=== PATIENT | female | born 1995 | race Hispanic/Latino ===

== ENCOUNTER 2018-01-15 02:40 | Inpatient (IN) | payer MEDICAID, OTHER ==
[2018-01-20 23:06] VITALS: BMI 37.8
[2018-01-20] MEDS: Lactated Ringer's 1,000 ML IV SCH (23:10)
[2018-01-20] MEDS ORDERED: Promethazine HCl 25 MG/ML VIAL IM PRN (23:12)
[2018-01-20] MEDS ORDERED: Ibuprofen 800 MG TAB PO PRN (23:12)
[2018-01-20] MEDS ORDERED: Zolpidem Tartrate 5 MG TAB PO PRN (23:12)
[2018-01-20] MEDS ORDERED: LR / Pitocin 40 units/1000 ml 1,000 ML IV PRN (23:12)
[2018-01-20] MEDS ORDERED: HYDROcodone/Acetaminophen 5/325 mg Tablet PO PRN ×2 (23:12)
[2018-01-20] MEDS ORDERED: Misoprostol 200 MCG TAB PR PRN (23:12)
[2018-01-20] MEDS ORDERED: Carboprost 250 MCG/ML AMP IM PRN (23:12)
[2018-01-20] MEDS ORDERED: Lidocaine 1% (PF) 30 ML VIAL SC PRN (23:12)
[2018-01-20] MEDS ORDERED: Ondansetron HCl/PF 4 MG/2 ML Vial IVP PRN (23:12)
[2018-01-20] MEDS ORDERED: Methylergonovine 0.2 MG/ML VIAL IM PRN (23:12)
[2018-01-20] MEDS ORDERED: Acetaminophen 500 MG TAB PO PRN (23:12)
[2018-01-20] MEDS ORDERED: Penicillin G Potassium 5 MILL.UNITS in Sodium Chloride 0.9% 100 ML IVPB SCH (23:15)
[2018-01-20 23:42] LABS: Hemoglobin 11.8 g/dL (12.0-16.0); Mean Corpuscular HGB CONC 32.7 g/dL (32.0-36.0); Mean Corpuscular Hemoglobin 27.3 pg (25.0-35.0); Mean Corpuscular Volume 83.5 fl (77.0-87.0); Mean Platelet Volume 11.2 fL (7.4-10.4); Platelet Count 198 thou/uL (130-400); RBC Distribution Width 12.9 % (11.5-14.5); Red Blood Cell (RBC) Count 4.33 mill/uL (4.00-5.20); White Blood Cell (WBC) Count 10.8 thou/uL (4.8-10.8)
[2018-01-20] MEDS: Misoprostol 100 MCG TAB VAG SCH (23:49)
--- NOTE | 2018-01-21 | PDOC.LDHP ---
Labor and Delivery H&P Chief complaint: scheduled induction HPI: Patient is a 22yo at 40.5w by LMP/14.6w sono presents for IOL for post dates. Patient denies LOF, VB, dysuria, vaginal d/c, and recent illness. Reports good FM. Current gestational age (weeks): 40 (5) Due date: 01/15/18 Dating criteria: last menstrual period, first trimester ultrasound Grav: 1 Para: 0 Current complications: other (Positive chlamydia with negative ROZ) Abnormal US findings: No Past Medical History: None Current medications: none Previous surgical history: none Social history: none - Physical Exam Vital signs reviewed and normal: yes General: NAD, resting Heart: RRR Lungs: nonlabored breathing Abdomen: gravid Extremeties: trace edema FHT: category 1 [place] contractions every: irregular - Vaginal Exam cm dilated: 0 Effacement: 0% Station: -2 - OB Labs Blood type: A RH: positive Antibody Screen: negative HIV: negative RPR: negative HEPSAg: negative 1 hour GCT: negative GBS: positive Urine drug screen: not done Rubella: immune - Assessment L&D Assessment: elective induction at term 22yo at 40.5 by LMP/14.6w gonzalezo presents for IOL. 1. IOL for post term dates - admit to L&D - cytotec placed 0000, monitor FHT, currently Cat 1 - LR at 125ml/hr - FT//-2, repeat cervical check in 3hrs 2. GBS positive - PCN prophylaxis 3. Adoption - patient reports plan to see the baby right after delivery - has filled out open adoption paperwork with [facility] - Plan Plan: admit to L&D, cervical ripening, labor augmentation if indicated <Baylee Max - Last Filed: 01/20/18 23:58> <Olga Belcher - Last Filed: 01/21/18 00:32> Allergies/Adverse Reactions: Allergies Allergy/AdvReac Type Severity Reaction Status Date / Time No Known Allergies Allergy Unverified 01/20/18 23:01 Attending Addendum - Attending Addendum Date/Time: 01/21/18 0028 I personally evaluated the patient and discussed the management with Dr. Max I agree with the History, Examination, Assessment and Plan documented above with any addition or exceptions noted below- 22 yo LAF @40.5 weeks admitted for induction. (+) FM. Denies any ctx, LOF, VB. Afebrile VSS SVE FT/ thick/-2/post; Category 1 FHTs; [place]- no ctx A/P: 1) IUP @40.5 weeks for postdates induction- cytotec placed for cervical ripening; recheck in 3-4 hours. 2) GBS(+) - start prophylaxis when pitocin started. <Olga Belcher - Last Filed: 01/21/18 00:32>
[2018-01-21 00:05] LABS: Syphilis Antibody Nonreactive (Nonreactive); Syphilis Antibody Index 0.05 S/CO (<1.00 Non-Reactive)
[2018-01-21 00:06] LABS: HBSAg Index 0.18 S/CO (0-0.99); Hep B Surf Ag Non-Reactive S/CO (NonReactive)
[2018-01-21] MEDS ORDERED: Penicillin G 2.5 MILL.units 2.5 MILL.UNITS in Premix Bag 1 BAG IVPB SCH (01:00)
[2018-01-21] MEDS: Misoprostol 100 MCG TAB VAG SCH ×4 (03:23→17:34)
--- NOTE | 2018-01-21 03:33 | PDOC.LDPN ---
Labor & Delivery Progress Note - Subjective Subjective: comfortable - Objective Vital signs reviewed and normal: yes General: NAD Uterine fundus: non tender SVE: FT/75%/-2 Dilation: FT Effacement: 75% Station: -2 FHT: category 1 [place] contractions every: irregular Procedures: cytotec placed - Assessment (1) Term Code(s): Z34.80 - ENCOUNTER FOR SUPRVSN OF NORMAL , UNSP TRIMESTER Current Visit: Yes Status: Acute Comment: 22 yo at 41w by LMP/14.6w sono here for IOL Cytotec x1, minimal change on SVE, cat 1 strip. Second cytotec placed. Continue to monitor and recheck in 3 hrs. (2) GBS (group B Streptococcus carrier), +RV culture, currently Code(s): O99.820 - STREPTOCOCCUS B CARRIER STATE COMPLICATING Current Visit: Yes Status: Acute Comment: Prophylactic PCN, loading dose given. Will give q4h once pitocin is started Plan: continue plan of care
[2018-01-21] MEDS ORDERED: Fluconazole 100 MG TAB PO SCH (04:15)
[2018-01-21] MEDS ORDERED: Penicillin G Potassium 5 MILL.UNITS in Sodium Chloride 0.9% 100 ML IVPB SCH ×2 (07:00→23:59)
[2018-01-21] MEDS: Lactated Ringer's 1,000 ML IV SCH ×2 (10:40→18:49)
--- NOTE | 2018-01-21 10:40 | PDOC.LDPN ---
Addendum entered and electronically signed by Mundo Gallardo MD 01/21/18 10:58: Specimen was negative for ferning. Will place cytotec #4. Original Note: Labor & Delivery Progress Note - Subjective Subjective: comfortable, loss of fluid (patient feels like she had a small amound of fluid discharge) - Objective Vital signs reviewed and normal: yes General: NAD, resting, breathing through contractions Uterine fundus: tender to palpation SVE: Sami Dilation: FT Effacement: 50% Station: -2 FHT: category 1 [place] contractions every: none - Assessment (1) Term Code(s): Z34.80 - ENCOUNTER FOR SUPRVSN OF NORMAL , UNSP TRIMESTER Current Visit: Yes Status: Acute Comment: 22 yo at 41w by LMP/14.6w sono here for IOL Cytotec x3, no change on SVE, cat 1 strip. Patient felt like she had loss of small amount of fluid. Amnisure had blood, therefore not reliable. Used speculum, no pooling, swab was taken. Will check for ferning. Continue to monitor and recheck in 3 hrs. (2) GBS (group B Streptococcus carrier), +RV culture, currently Code(s): O99.820 - STREPTOCOCCUS B CARRIER STATE COMPLICATING Current Visit: Yes Status: Acute Comment: Prophylactic PCN, loading dose given. Will give another loading dose and start q4h once pitocin is started. Plan: continue plan of care <Mundo Gallardo - Last Filed: 01/21/18 10:38> Attending Addendum - Attending Addendum Date/Time: 01/21/18 1102 I personally evaluated the patient and discussed the management with Dr. Gallardo and Marlee I agree with the History, Examination, Assessment and Plan documented above with any addition or exceptions noted below. No evidence of rupture. Fern negative. No pooling on exam. Will proceed with cervical ripening. ABrayMD <Elizabeth Colbert - Last Filed: 01/21/18 11:03>
[2018-01-21] MEDS: Penicillin G 2.5 MILL.units 2.5 MILL.UNITS in Premix Bag 1 BAG IVPB SCH ×2 (14:18→17:34)
--- NOTE | 2018-01-21 15:44 | PDOC.LDPN ---
Labor & Delivery Progress Note - Subjective Subjective: comfortable, painful contractions, vaginal pressure - Objective Vital signs reviewed and normal: yes General: NAD, resting, breathing through contractions Uterine fundus: non tender SVE: Sami COLLINS/Kelli SANCHEZ Dilation: 1.5 Effacement: 75% Station: -2 FHT: category 1 [employer] contractions every: irritability, no regular contractions - Assessment (1) Term Code(s): Z34.80 - ENCOUNTER FOR SUPRVSN OF NORMAL , UNSP TRIMESTER Current Visit: Yes Status: Acute Comment: 22 yo at 41w by LMP/14.6w sono here for IOL Patient felt like she had loss of small amount of fluid. Amnisure had blood, therefore not reliable. Used speculum, no pooling, swab was taken. Negative ferning, no rupture at 1045 this morning. 1530: 4 hours after placement of Cytotec #4. SVE was 1.5/75/-[address] balloon. (2) GBS (group B Streptococcus carrier), +RV culture, currently Code(s): O99.820 - STREPTOCOCCUS B CARRIER STATE COMPLICATING Current Visit: Yes Status: Acute Comment: Prophylactic PCN, loading dose given. Will give another loading dose and start q4h once pitocin is started. Plan: continue plan of care, other (Will place balloon. )
[2018-01-21] MEDS ORDERED: Ondansetron HCl/PF 4 MG/2 ML Vial ONE (16:11)
--- NOTE | 2018-01-21 16:24 | PDOC.LDPN ---
Labor & Delivery Progress Note - Subjective Subjective: comfortable, painful contractions - Objective Vital signs reviewed and normal: yes General: NAD, resting, breathing through contractions Uterine fundus: non tender SVE: Addis Dilation: 1.5 Effacement: 75% Station: -2 FHT: category 1 [place] contractions every: 8-10 minutes Procedures: Balloon placement - Assessment (1) Term Code(s): Z34.80 - ENCOUNTER FOR SUPRVSN OF NORMAL , UNSP TRIMESTER Current Visit: Yes Status: Acute Comment: 22 yo at 41w by LMP/14.6w sono here for IOL Patient felt like she had loss of small amount of fluid. Amnisure had blood, therefore not reliable. Used speculum, no pooling, swab was taken. Negative ferning, no rupture at 1045 this morning. 1530: 4 hours after placement of Cytotec #4. SVE was 1.5/75/-[address] balloon. 1600: Balloon placed. Patient tolerated procedure well. Successful placement of balloon. 40 cc in uterine, 40 cc in vaginal balloon. Will increase by 20 cc in each after about an hour. (2) GBS (group B Streptococcus carrier), +RV culture, currently Code(s): O99.820 - STREPTOCOCCUS B CARRIER STATE COMPLICATING Current Visit: Yes Status: Acute Comment: Prophylactic PCN, loading dose given. Will give another loading dose and start q4h once pitocin is started. Plan: continue plan of care <Mundo Gallardo - Last Filed: 01/21/18 16:23> Attending Addendum - Attending Addendum Date/Time: 01/21/18 9166 I personally evaluated the patient and discussed the management with Dr. Mancini and Dr. Gallardo. I was present during placement of Cook's balloon, which was done by Dr. Mancini in proper sterile fashion and without difficulty. Patient experienced some nausea and pain after placement of balloon, which resolved quickly. FHTs Cat 1 throughout. May consider starting pit while balloon is in place. <Lizeth Pelaez - Last Filed: 01/21/18 16:55>
[2018-01-21] MEDS ORDERED: DISCONTINUE ALL PREVIOUS NARCOTICS FS SCH (18:45)
[2018-01-21] MEDS ORDERED: Bupivacaine 0.5% 20 ML, fentaNYL Citrate/PF 400 MCG in Sodium Chloride 0.9% 72 ML EPIDURAL SCH (18:45)
[2018-01-21] MEDS ORDERED: Eucerin (Mineral Oil/Petrolatum,White) 30 gm Jar TOP PRN (19:32)
[2018-01-21] MEDS ORDERED: Promethazine HCl 25 MG/ML VIAL IM PRN (19:32)
[2018-01-21] MEDS ORDERED: Naloxone HCl 0.4 mg/ml Vial IVP PRN ×2 (19:32)
[2018-01-21] MEDS ORDERED: Ondansetron HCl/PF 4 MG/2 ML Vial IVP PRN (19:32)
[2018-01-21] MEDS ORDERED: Lactated Ringer's 500 ML IV PRN (19:32)
[2018-01-21] MEDS ORDERED: ePHEDrine/0.9% NaCl/PF SYRINGE 50 mg/10 ml SLOW IVP PRN (19:32)
[2018-01-21] MEDS ORDERED: diphenhydrAMINE 50 MG/ML VIAL IVP PRN (19:32)
[2018-01-21] MEDS ORDERED: Acetaminophen 325 MG TAB PO PRN (19:32)
[2018-01-21] MEDS ORDERED: Communication Order-Pharmacy FS SCH (19:45)
[2018-01-21] MEDS ORDERED: Fentanyl 4mcg/Marcaine 0.1% Cassette 100 ML EPIDURAL SCH (19:45)
--- NOTE | 2018-01-21 21:23 | PDOC.LDPN ---
Labor & Delivery Progress Note - Subjective Subjective: comfortable - Objective Vital signs reviewed and normal: yes Abnormal vital signs: none General: NAD, resting Uterine fundus: non tender SVE: balloon in place FHT: category 1, category 2 [place] contractions every: q3-4min Other exam findings: baseline 130's, +accels, 1 late decels, several early, moderate variability - Assessment (1) Term Code(s): Z34.80 - ENCOUNTER FOR SUPRVSN OF NORMAL , UNSP TRIMESTER Current Visit: Yes Status: Acute Comment: 22 yo at 41w by LMP/14.6w sono here for IOL for post-dates. Patient felt like she had loss of small amount of fluid. Amnisure had blood, therefore not reliable. Used speculum, no pooling, swab was taken. Negative ferning, no rupture at 1045 this morning. 1530: 4 hours after placement of Cytotec #4. SVE was 1.5/75/-[address] balloon. 1600: Balloon placed. Patient tolerated procedure well. Successful placement of balloon. 40 cc in uterine, 40 cc in vaginal balloon. Will increase by 20 cc in each after about an hour. 2044: Patient had one fairly large late decel that has recovered. Due to decel, patient still has 40cc in each balloon. Balloon still in place. Patient received epidural for pain control with great relief. Plan to start pitocin at next check. (2) GBS (group B Streptococcus carrier), +RV culture, currently Code(s): O99.820 - STREPTOCOCCUS B CARRIER STATE COMPLICATING Current Visit: Yes Status: Acute Comment: Will give loading dose and start q4h once pitocin is started. Plan: continue plan of care
--- NOTE | 2018-01-21 23:23 | PDOC.LDPN ---
Labor & Delivery Progress Note - Subjective Subjective: comfortable - Objective Vital signs reviewed and normal: yes General: NAD, resting Uterine fundus: palpable contractions SVE: balloon in place FHT: category 1 [place] contractions every: q6-10min Other exam findings: baseline 125, mod variability, no decels, no accels - Assessment (1) Term Code(s): Z34.80 - ENCOUNTER FOR SUPRVSN OF NORMAL , UNSP TRIMESTER Current Visit: Yes Status: Acute Comment: 22 yo at 41w by LMP/14.6w sono here for IOL for post-dates. Patient felt like she had loss of small amount of fluid. Amnisure had blood, therefore not reliable. Used speculum, no pooling, swab was taken. Negative ferning, no rupture at 1045 this morning. 1530: 4 hours after placement of Cytotec #4. SVE was 1.5/75/-[address] balloon. 1600: Balloon placed. Patient tolerated procedure well. Successful placement of balloon. 40 cc in uterine, 40 cc in vaginal balloon. Will increase by 20 cc in each after about an hour. 2044: Patient had one fairly large late decel that has recovered. Due to decel, patient still has 40cc in each balloon. Balloon still in place. Patient received epidural for pain control with great relief. Plan to start pitocin at next check. 2320 Patient resting comfortably. Balloon in place. Will start pitocin and abx. (2) GBS (group B Streptococcus carrier), +RV culture, currently Code(s): O99.820 - STREPTOCOCCUS B CARRIER STATE COMPLICATING Current Visit: Yes Status: Acute Comment: Will give loading dose and start q4h once pitocin is started. <Baylee Max - Last Filed: 01/21/18 23:26> Attending Addendum - Attending Addendum Date/Time: 01/21/18 2341 Patient comfortable with epidural. Afebrile VSS Balloon in place now inflated 80/80mL FHT: Category 1 [place] ctx q6-10 minutes A/P: IUP at 40 6/7 weeks undergoing induction- will start pitocin. <Olga Belcher - Last Filed: 01/22/18 08:22>
[2018-01-21] MEDS ORDERED: LR 500 ML/Oxytocin 10 units 500 ML IV SCH (23:30)
[2018-01-22] MEDS: Lactated Ringer's 1,000 ML IV SCH ×2 (01:00→10:52)
--- NOTE | 2018-01-22 02:45 | PDOC.OPDEL ---
OB Operative/Delivery Note Delivery Dr/Surgeon: Addis Max Lichorad Pre-Delivery Diagnosis: elective induction (post dates) Procedure/Post Delivery Dx: spontaneous vaginal delivery Weeks gestation: 40 (+6) Anesthesia: epidural - Findings A Sex: female - 1 min: 8 - 5 min: 9 - Additional Findings/Plan Placenta delivered: spontaneous Repaired Obstetrical Laceration: 1st degree (hemostatic without intervention) Estimated blood loss: 400 Compilations/Other Findings: G1 who delivered viable female at 0222 on 01/22/18. was uncomplicated and this was a post dates induciton. She entered second stage of labor, pushed with consitent progress until delivery of the head. Head compression was causing early decelerations and fetus had good accelerations to scalp stimulation between contractions. Head delivered over intact periteonemum OA, nuchal was reduced x1, anterior and then posterior shoulder were easily delivered. Meconium noted. cord cut and clamped and handed to waiting team. There were several large gushes of blood from the uterus which resolved with massage. Small hemostatic 1st degree laceration was seen and did not need intervention. Because of the larger gushes, cytotec was given rectally at end of the procedure. Post delivery plan: routine recovery <Triston Mancini - Last Filed: 01/22/18 02:51> Attending Addendum - Attending Addendum Date/Time: 01/22/18 0811 I was present and supervised the of a viable female infant over an intact perineum @02:21 . Apgars 8/9. Patient progressed to complete rapidly with deep variables present with pushing which recovered quickly and maintained variability. Head delivered atraumatically and nuchal cord x1 reduced easily. Shoulder and body delivered easily. Placenta delivered spontaneously and intact. 3 V cord. Mild uterine atony resolved with bimanual massage. EBL 400 mL. to nursery and mother to after recovery in stable condition. <Olga Belcher - Last Filed: 01/22/18 08:21>
[2018-01-22] MEDS ORDERED: Penicillin G 2.5 MILL.units 2.5 MILL.UNITS in Premix Bag 1 BAG IVPB SCH (04:00)
[2018-01-22] MEDS ORDERED: Bisacodyl 10 MG SUPP PR PRN (05:17)
[2018-01-22] MEDS ORDERED: Milk Of Magnesia 30 ML UDCUP PO PRN (05:17)
[2018-01-22] MEDS ORDERED: LR / Pitocin 40 units/1000 ml 1,000 ML IV SCH (05:17)
[2018-01-22] MEDS ORDERED: Preparation H Ointment 28 GM TUBE PR PRN (05:17)
[2018-01-22] MEDS ORDERED: Ondansetron HCl/PF 4 MG/2 ML Vial IVP PRN (05:17)
[2018-01-22] MEDS ORDERED: diphenhydrAMINE 25 MG CAP PO PRN (05:17)
[2018-01-22] MEDS ORDERED: Ampicillin 2 GM in Sodium Chloride 0.9% 100 ML IVPB SCH (06:00)
[2018-01-22] MEDS ORDERED: Gentamicin Sulfate 360 MG in Sodium Chloride 0.9% 100 ML IVPB SCH (06:00)
[2018-01-22 06:07] LABS: Band 24 % (5-11); Hemoglobin 10.4 g/dL (12.0-16.0); Lymphocytes 7 % (28-48); MDiff Complete? YES; Mean Corpuscular HGB CONC 32.9 g/dL (32.0-36.0); Mean Corpuscular Hemoglobin 27.2 pg (25.0-35.0); Mean Corpuscular Volume 82.7 fl (77.0-87.0); Monocytes 7 % (0-4); Neutrophil 62 % (31-61); PLT Morphology Comment Appears Adequate; Platelet Count 149 thou/uL (130-400); RBC Distribution Width 12.7 % (11.5-14.5); Red Blood Cell (RBC) Count 3.85 mill/uL (4.00-5.20); White Blood Cell (WBC) Count 20.8 thou/uL (4.8-10.8)
[2018-01-22 07:53] LABS: Bilirubin Negative (Negative); Clarity CLOUDY (Clear); Glucose, Urine (Dipstick) Negative (Negative); Protein, Urine (Dipstick) 100 mg/dL (Neg-Trace); Urobilinogen 0.2 mg/dL (0.2-1.0); pH, Urine 6.5 (5.0-9.0)
[2018-01-22 07:54] LABS: Bacteria/HPF None Seen HPF (None Seen); Hyaline Casts/LPF 0-3 HYALINE CAST LPF (0-3 Hyaline); Pathc Cast-AUWi Flag 1.01 (0-2.49)
[2018-01-22] MEDS: Ampicillin 2 GM in Sodium Chloride 0.9% 100 ML IVPB SCH ×3 (07:54→20:36)
[2018-01-22 07:55] LABS: Yeast-AUWi Flag 172.3 (0-25.0)
[2018-01-22 08:15] LABS: RBC/HPF GREATER THAN 50-TNTC HPF (0-3)
[2018-01-22 08:17] LABS: Blood, Urine Unable to Interpret (Negative); Leukocyte Unable to Interpret (Negative); Nitrite Unable to Interpret (Negative)
[2018-01-22 08:18] LABS: Renal Epithelial None Seen HPF (0-3); Transitional Epithelial NONE SEEN HPF (0-3); Yeast-All Forms None Seen HPF (None Seen)
[2018-01-22] MEDS ORDERED: Adacel (T-DAP) 0.5 ML VIAL IM ONE (09:00)
[2018-01-22] MEDS: Ferrous Sulfate 325 MG TAB PO SCH ×2 (09:03→18:40)
[2018-01-22] MEDS: Docusate Calcium (SURFAK) 240 MG CAP PO SCH (09:03)
[2018-01-22] MEDS: Prenatal Vitamin 1 TAB PO SCH (09:11)
[2018-01-22] MEDS: Ibuprofen 800 MG TAB PO SCH (19:51)
[2018-01-23] MEDS: Docusate Calcium (SURFAK) 240 MG CAP PO SCH ×2 (00:22→09:40)
[2018-01-23] MEDS: Ibuprofen 800 MG TAB PO SCH ×3 (02:17→14:18)
[2018-01-23] MEDS: Lactated Ringer's 1,000 ML IV SCH ×2 (02:17→09:39)
[2018-01-23] MEDS: Ampicillin 2 GM in Sodium Chloride 0.9% 100 ML IVPB SCH ×2 (02:18→08:22)
[2018-01-23 06:21] LABS: Band 3 % (5-11); Hemoglobin 9.8 g/dL (12.0-16.0); Lymphocytes 18 % (28-48); MDiff Complete? YES; Mean Corpuscular HGB CONC 32.6 g/dL (32.0-36.0); Mean Corpuscular Hemoglobin 27.3 pg (25.0-35.0); Mean Corpuscular Volume 83.7 fl (77.0-87.0); Mean Platelet Volume 10.6 fL (7.4-10.4); Monocytes 3 % (0-4); Neutrophil 74 % (31-61); PLT Morphology Comment Appears Adequate; Platelet Count 146 thou/uL (130-400); RBC Distribution Width 12.8 % (11.5-14.5); RBC Morphology Normal; Reactive Lymphocytes 2 % (0-10); Red Blood Cell (RBC) Count 3.58 mill/uL (4.00-5.20); White Blood Cell (WBC) Count 15.7 thou/uL (4.8-10.8)
--- NOTE | 2018-01-23 09:22 | PDOC.PP ---
Post Progress Note Post Day #: 1 Subjective: 22 yo [id number] who came in for IOL 2/2 postdates, now s/p @ 40.6 on 01/22 @ 0221, with GBS+, inadequately treated due to precipitous delivery once pitocin initiated; she was started on abx at 0800 yesterday 2/2 suspected endometritis. O/N: No acute events ovenight. Pt has been afebrile now for >24 hours. Denies uterine tenderness. Ambulating, tolerating PO, passing flatus, minimal lochia. PO intake tolerated: yes Flatus: yes Ambulation: yes Vital Signs (12 hours) Temp Pulse Resp 01/23/18 05:00 98.2 F 95 16 01/23/18 04:00 98.4 F 100 16 01/23/18 00:00 98.4 F 103 H 16 Weight Weight 99.79 kg - Physical Examination General: NAD Cardiovascular: no m/r/g, RRR Respiratory: clear to auscultation bilaterally, non-labored breathing Abdominal: + bowel sounds, lochia (minimal), no distention Deviation from normal: no uterine tenderness Fundus firm & at: umbilicus Skin: no rash Neurological: no gross focal deficits Psychiatric: A&Ox3, normal affect Result Diagrams: 01/23/18 05:31 Additional Labs: Post Labs Blood Type A POSITIVE 01/20/18 23:08 Hep Bs Antigen Non-Reactive S/CO (NonReactive) 01/20/18 23:08 (1) Term delivered Code(s): O80 - ENCOUNTER FOR FULL-TERM UNCOMPLICATED DELIVERY Status: Acute (2) Endometritis following delivery Code(s): O86.12 - ENDOMETRITIS FOLLOWING DELIVERY Status: Acute (3) GBS (group B Streptococcus carrier), +RV culture, currently Code(s): O99.820 - STREPTOCOCCUS B CARRIER STATE COMPLICATING Status : Acute Comment: Will give loading dose and start q4h once pitocin is started. - Assessment/Plan 22 yo [id number] now s/p , GBS+ inadequately treated, with suspected endometritis on ampicillin and gentamicin, now afebrile >24 hours. 1.)Term , delivered- -Ambulating, tolerating PO, minimal lochia, no uterine tenderness, passing flatus. 2.)Suspected Endometritis- -Amp/Gent started d/t febrile post delivery and 20.7 leukocytosis with bandemia -Now afebrile >24 hours -Okay to DC antibiotics today -Okay to discharge this afternoon on clindamicin for 7 days. 3.)GB+- -inadequately treated d/t precipitous delivery once on pitocin -Spiked a fever post delivery and subsequently started on antibiotics for suspected endometritis vs fever 2/2 delivery -see above Dispo: Plan for discharge today pending adoption paperwork with social professionals. <Maddie Robison - Last Filed: 01/23/18 09:16> Vital Signs (12 hours) Temp Pulse Resp BP 01/23/18 08:00 98.6 F 66 18 122/67 01/23/18 05:00 98.2 F 95 16 01/23/18 04:00 98.4 F 100 16 Weight Weight 99.79 kg Result Diagrams: 01/23/18 05:31 Additional Labs: Post Labs Blood Type A POSITIVE 01/20/18 23:08 Hep Bs Antigen Non-Reactive S/CO (NonReactive) 01/20/18 23:08 <Leigh Reyes - Last Filed: 01/23/18 12:29> Attending Addendum - Attending Addendum Date/Time: 01/23/18819 I personally evaluated the patient and discussed the management with Dr. Quezada I agree with the History, Examination, Assessment and Plan documented above with any addition or exceptions noted below. ppd # 1 s/p - recovering well Suspected endometritis- now asymptomatic. s/p 24 hour amp and gent and afebrile > 24 hours. D/c IV abx and send home with po abx. Stable for d/c home <Leigh Reyes - Last Filed: 01/23/18 12:29>
[2018-01-23] MEDS: Prenatal Vitamin 1 TAB PO SCH (09:40)
[2018-01-23] MEDS: Ferrous Sulfate 325 MG TAB PO SCH (09:40)
[2018-01-23 10:39] VITALS: BP 122/67; TEMP 98.6
== END 2018-01-23 15:15 | disposition home or self-care (01) | DRG 774 ==
LOC: L&D 01-20 22:30 → 3SW 01-22 05:04
PROVIDERS: ADMIT Family Medicine; ATTEND Family Medicine
PROC: 10E0XZZ Delivery of Products of Conception, External Approach (ICD-10-PCS; principal; 2018-01-22)
PROC: 3E0P7VZ Introduction of Hormone into Female Reproductive, Via Natural or Artificial Opening (ICD-10-PCS; 2018-01-22)
PROC: 3E033VJ Introduction of Other Hormone into Peripheral Vein, Percutaneous Approach (ICD-10-PCS; 2018-01-22)
PROC: 0HQ9XZZ Repair Perineum Skin, External Approach (ICD-10-PCS; 2018-01-22)
PROC: 0U7C7ZZ Dilation of Cervix, Via Natural or Artificial Opening (ICD-10-PCS; 2018-01-22)
DX: O48.0 Post-term pregnancy (principal); O86.12 Endometritis following delivery; O69.81X0 Labor and delivery complicated by cord around neck, without compression, not applicable or unspecified; O70.0 First degree perineal laceration during delivery; O99.824 Streptococcus B carrier state complicating childbirth; Z37.0 Single live birth; Z3A.40 40 weeks gestation of pregnancy; O77.0 Labor and delivery complicated by meconium in amniotic fluid
CPT/HCPCS: 36415; 51702; 81003; 81015; 85007; 85025; 85027; 86780; 87040; 87086; 87340; 88307; A4216; C1726; J0290; J1580; J2210; J2405; J2540; J3010; J3490; J7050; J7120